=== PATIENT | female | born 2000 | race Caucasian/White ===

== ENCOUNTER 2024-09-29 12:01 | Emergency (ER) | payer MEDICAID, SELFPAY ==
--- NOTE | ~2024-09-29 | XR_ITS ---
CLINICAL HISTORY: volar wrist and palmar hand pain 3 view right hand Comparison: None Findings: No fractures or dislocations. No significant loss of joint space or osteophytes. No erosions. No radiopaque foreign body. IMPRESSION: 1. No acute findings This document has been electronically signed by: Nella Mcneill MD on 09/29/2024 13:20:49
[2024-09-29 12:10] VITALS: BP 118/75; PULSE 87; RESP 16; TEMP 36.6; O2SAT 98; BMI 33.1
--- NOTE | 2024-09-29 12:11 | ED.GENADULT ---
HPI - General Adult General Chief complaint: Extremity Problem Stated complaint: R Hand Pain Time Seen by Provider: 09/29/24 14:38 Source: patient Mode of arrival: ambulatory Limitations: no limitations History of Present Illness ED Provider: Elizabeth Morton PA-C HPI narrative: Patient is a 24 year old assigned female at with no reported medical history presenting to the emergency department today with right hand and wrist pain. Patient states that over the last week she has had progressively worsening right hand pain that started in her right wrist. 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 Patient states that she cannot extend her right fingers all the way out without pain in her right palm. Patient states that she has swelling in her right palm at the base of her 3rd and 4th fingers. Patient denies any dizziness, lightheadedness, abdominal pain, nausea, vomiting, fever, chills, blurry vision, double vision, loss of vision, chest pain, difficulty breathing, shortness of breath, back pain, night sweats, pain with urination, increased urinary frequency, increased urinary urgency, blood in her urine or stool, syncope or a near syncopal episode, recent trauma or falls, bowel incontinence, bladder incontinence, or any other complaints at this time. Onset (ago): week(s) (1) Location: right and upper extremity Relieving factors: immobilization Exacerbating factors: movement Associated symptoms: denies other symptoms Treatments prior to arrival: none Related Data Previous Rx's ?Medication ?Instructions ?Recorded naproxen 500 mg tablet 500 mg PO BID 7 days #14 tabs 09/29/24 omeprazole 20 mg capsule,delayed 20 mg PO DAILY #7 caps 09/29/24 release prednisone 20 mg tablet 20 mg PO DAILY 7 days #7 tabs 09/29/24 Allergies Allergy/AdvReac Type Severity Reaction Status Date / Time No Known Allergies Allergy Verified 09/29/24 12:14 Review of Systems Constitutional: Constitutional: Reports no additional constitutional complaints, Denies chills, Denies fever(s) and Denies night sweats Eyes: Eyes: Reports no additional eye complaints, Denies blurry vision, Denies change in vision, Denies diplopia, Denies eye discharge, Denies loss of vision and Denies eye pain ENT: Denies dizziness Cardiovascular: Cardiovascular: Reports no additional cardiovascular complaints, Denies chest pain, Denies lightheadedness, Denies Loss of Consciousness and Denies dyspnea Respiratory: Respiratory: Reports no additional respiratory complaints and Denies dyspnea Gastrointestinal: Gastrointestinal: Reports no additional gastrointestinal complaints, Denies abdominal pain, Denies melena, Denies hematochezia, Denies change in bowel habits and Denies change in stool character Genitourinary: Genitourinary: Denies hematuria, Denies urinary frequency, Denies dysuria, Denies urinary incontinence, Denies urinary hesitancy and Denies urinary urgency Musculoskeletal: Musculoskeletal: Reports no additional musculoskeletal complaints, Denies numbness and Denies tingling Comments: right hand and wrist pain Neurologic: Denies dizziness, Denies loss of vision, Denies numbness and Denies tingling Psychiatric: Psychiatric: Reports no additional psychiatric complaints Endocrine: Endocrine: Reports no additional endocrine complaints Hematologic/Lymphatic: Hematologic/Lymphatic: Reports no additional hematologic/lymphatic complaints Allergic/Immunologic: Allergic/Immunologic: Reports no additional allergic/immunologic complaints PMFSH Past Medical History Attestation statement: The following information was validated with the patient. Source: old records reviewed and nursing notes reviewed Social History Social History Advance Directives: No Advance Directives Information Provided: No Physical Exam ED Vital Signs: Vital Signs - 24 hr 09/29/24 12:10 09/29/24 14:51 Temperature 98 F 98 F Pulse Rate 87 87 Respiratory Rate 16 16 Blood Pressure 118/75 118/75 Pulse Oximetry 98 98 Oxygen Delivery Method Room Air Room Air BMI result Body Mass Index 33.1 Const General: cooperative, no acute distress, alert and awake Nutritional Appearance: well nourished Orientation/consciousness: patient oriented x3 Limitations: no limitations HENMT Head: Yes normal to inspection and Yes atraumatic Ears: hearing grossly normal bilaterally and external ears normal General nose exam: Normal external nose present, no nasal discharge noted and no epistaxis Face and sinus: Yes normal facial exam, No abrasion and No laceration Mouth: Normal oral and palatal mucosa present, no drooling and no muffled voice Eyes General: appearance normal, both eyes and all related structures Periorbital: periorbital findings normal Eyelids: Yes eyelids normal Conjunctivae: conjunctivae normal Pupils: Equal, round and reactive pupils present EOM: EOMs intact bilaterally Neck Neck: Yes normal visual inspection, Yes full ROM and Yes no lymphadenopathy Chest Chest palpation & inspection: normal inspection of the chest Resp Effort & Inspection: normal respiratory effort and able to speak in complete sentences GI Inspection: Yes normal to inspection Neuro General: patient oriented x3, moves all extremities and CN's II-XI intact bilaterally Cranial nerves: Yes Equal, round and reactive pupils present Cognition (Neuro): normal cognition Extrem Other: patient has full range of motion of the right hand and wrist however, patient has significant pain with extension of the right fingers minimal swelling to the palmar aspect of the right hand at the base of the 3rd and 4th fingers with no discernable mass positive tinel test of the right wrist General: Yes capillary refill normal Psych Appearance: grossly normal Mental Status: mental status grossly normal Affect: normal affect Attitude: cooperative Thought process: Normal thought process present Thought content: Normal thought content present Insight: Good insight present (Psych) Course Course Course Narrative: RME performed by Elizabeth Morton PA-C. Patient is a 24 year old assigned female at presenting to the emergency department with right wrist and hand pain. 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 Detailed physical exam and review of systems are deferred to the chief controller center. Imaging ordered. Patient placed back in the waiting room pending room availability and results. Medical Decision Making Medical Decision Making MDM Narrative: Patient is a 24 year old assigned female at with no reported medical history presenting to the emergency department today with right hand and wrist pain. Patient's physical exam was as noted in the physical exam portion of this note. Patient's right hand and wrist x-ray showed no acute mati process. Patient's clinical presentation is most consistent with carpal tunnel vs. a ganglion cyst in the palm of the right hand. I explained my physical exam findings as well as all test results to the patient. I answered all questions asked by the patient. Patient's right wrist was placed in a volar Velcro splint, without incident. Patient's PMS was intact prior to and after splint placement. I stressed the importance of the patient taking her medication as directed (either prescribed or as the over the counter packaging recommends). I stressed the importance of the patient following up with her primary care provider and an orthopedic provider. I stressed the importance of the patient returning to the emergency department immediately if her symptoms were to worsen or if she were to develop any dizziness, shortness of breath, difficulty breathing, chest pain, blurry vision, loss of vision, nausea, vomiting, abdominal pain, fever, chills, back pain, or any other complaints. Patient verbalized agreement and understanding with this treatment plan and discharge. Differential Diagnosis Differential Diagnoses: The differential diagnosis associated with the presentation includes Right wrist pain Carpal tunnel syndrome Ganglion cyst Admission/Observation Consideration of admission/observation: Escalation of care including admission/observation considered Patient would have been admitted to the hospital had her work up had any findings where hospital admission was appropriate and her clinical presentation warranted hospital admission. Independent Interpretation I performed an independent interpretation of an: Plain X-Ray Interpretation: My interpretation is in agreement with the radiologist's impression of this imaging study. CLINICAL HISTORY: volar wrist and palmar hand pain 3 view right hand Comparison: None Findings: No fractures or dislocations. No significant loss of joint space or osteophytes. No erosions. No radiopaque foreign body. IMPRESSION: 1. No acute findings This document has been electronically signed by: Nella Mcneill MD on 09/29/2024 13:20:49 Dictated By: Nella Mcneill MD Signed By: Electronically signed by Nella Mcneill MD 09/29/24 1322 Radiology Impression Discussion of test interpretation with radiology: I have reviewed the radiologist's reading. Prescription Management I considered prescription management with: Pain Medication (patient prescribed pain medication) Discharge Plan Discharge Clinical Impression: Carpal tunnel syndrome, Hand pain, Ganglion cyst Patient Disposition: Home, Self-Care Instructions: Ganglion Cysts (ED), Paresthesia (ED), Arthralgia (ED) Additional Instructions: Your right hand/wrist x-ray showed no acute process however, you examination is concerning for a ganglion cyst in the palm of the hand vs. a carpal tunnel flare. The naproxen (NSAID) and prednisone (corticosteroid) can cause some epigastric pain therefore I have prescribed omeprazole which will help with this. Take the omeprazole first, wait 15 minutes, then take the other medications. Follow up with your primary care provider and an orthopedic provider. Return to the emergency department immediately if your symptoms worsen or if you develop any dizziness, shortness of breath, difficulty breathing, chest pain, blurry vision, loss of vision, nausea, vomiting, abdominal pain, fever, chills, back pain, or any other complaints. Prescriptions: New prednisone 20 mg tablet 20 mg PO DAILY 7 Days Qty: 7 0RF naproxen 500 mg tablet 500 mg PO BID 7 Days Qty: 14 0RF omeprazole 20 mg capsule,delayed release(DR/EC) 20 mg PO DAILY Qty: 7 0RF Referrals: [facility] [place] Family Medicine [Provider Group] (Call to establish and follow up with a primary care provider. If you already have a primary care provider, please follow up with them.) [facility] [place] Primary Care, [place] [Provider Group] (Call to establish and follow up with a primary care provider. If you already have a primary care provider, please follow up with them.) [facility] [place] Primary [facility],[place] [Provider Group] (Call to establish and follow up with a primary care provider. If you already have a primary care provider, please follow up with them.) [facility] [place] Primary Care, [place] [Provider Group] (Call to establish and follow up with a primary care provider. If you already have a primary care provider, please follow up with them.) [facility] [place] [facility] [Provider Group] (Call to establish and follow up with an orthopedic provider. ) Interventions: ED Discharge Assessment Last Done: 09/29/24 14:51 Discharge Date/Time: 09/29/24 14:51 Print Language: [place]
[2024-09-29 14:51] VITALS: BP 118/75; PULSE 87; RESP 16; TEMP 36.6; O2SAT 98
== END 2024-09-29 14:51 | disposition home or self-care (01) ==
PROVIDERS: Emergency Provider Emergency Medicine
DX: G56.01 Carpal tunnel syndrome, right upper limb (principal); M67.441 Ganglion, right hand; M79.641 Pain in right hand
CPT/HCPCS: 29125; 73110; 73130; 99283

== ENCOUNTER → 2024-09-29 12:12 | Outpatient (BNV) | payer MEDICAID, SELFPAY | PROVIDERS: Visit Provider Radiology Diagnostic Radiology | DX: M79.641 Pain in right hand (principal) | CPT/HCPCS: 73130 ==